=== PATIENT | male | born 1960 ===

== ENCOUNTER 2018-09-29 09:29 | Outpatient (CLI) | payer OTHER, BC ==
[~2018-09-29] VITALS: Ht 175.3 cm; Wt 68.0 kg
== END 2018-09-29 09:40 | disposition home or self-care (01) ==
LOC: OFIC 805 09:29
DX: D10.39 Benign neoplasm of other parts of mouth (principal); J31.0 Chronic rhinitis; J34.2 Deviated nasal septum; R49.9 Unspecified voice and resonance disorder

== ENCOUNTER 2018-10-20 09:47 | Outpatient (CLI) | payer OTHER, BC ==
[~2018-10-20] VITALS: Ht 152.4 cm; Wt 68.0 kg
== END 2018-10-20 10:10 | disposition home or self-care (01) ==
LOC: OFIC 805 09:47
DX: D10.39 Benign neoplasm of other parts of mouth (principal); J31.0 Chronic rhinitis; J34.2 Deviated nasal septum; R49.9 Unspecified voice and resonance disorder; H61.22 Impacted cerumen, left ear